=== PATIENT | male | born 1990 | race Two or more races ===

== ENCOUNTER 2020-08-20 09:54 | Emergency (ER) | payer SELFPAY ==
[~2020-08-20] VITALS: Ht 175.3 cm; Wt 99.8 kg
[~2020-08-20 09:54] MED LIST: CYCLOBENZAPRINE10 MG ORAL; IBUPROFEN600 MG ORAL
[2020-08-20 10:10] VITALS: BP 125/79
--- NOTE | 2020-08-20 10:10 | NUR ---
ED Nurse Note: Pt walked in from home. States he syncopal episode x2 days ago at his home witnessed by his friend. He said that he still feels light headed and nauseous today. Pt reprts n/v before syncopal episode. Pt is breathing non labored, vital signs stable, AxOx4, no signs of distress, no complaints of pain. Can use all four extremities independently and walks with a steady gait.
--- NOTE | 2020-08-20 10:36 | Emergency Room Report ---
History of Present Illness General Chief Complaint: Syncope Source: Patient Present Illness HPI Disclaimer: Please note that this report is being documented using DRAGON technology. This can lead to erroneous entry secondary to incorrect interpretation by the dictating instrument. HPI: 30-year-old otherwise healthy male presents for evaluation of syncope 2 days ago. The patient states he was rising from a seated position take off his jacket because he was feeling warm felt sudden nausea and had 1 episode of emesis. Shortly after vomiting he had a brief syncopal episode lasting several seconds. He was awoken by friends. No seizure activity was reported. No further syncope since. He feels somewhat fatigued but denies any chest pain, palpitations, lightheadedness, headache, neck or back pain. No injury sustained in the fall. He denies change in his vision, balance, coordination or strength or sensation. No family history of sudden cardiac or arrhythmias according to patient. Occasionally will use drugs but no recent alcohol or drug use is reported. 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 EOMI. Cardiovascular: RRR. S1 and S2 normal. No murmur appreciated Resp: Normal work of breathing. No cough, wheezing or crackles appreciated Abdomen: Abdomen is soft, nondistended. Nontender Skin: Intact. No abrasions, laceration or rash over the exposed skin MSK: Normal tone and bulk. Moving all extremities. No obvious deformity. Neuro: Awake and alert. Mentating appropriately. Medical Decision Making ER Course 30-year-old male presents for evaluation after syncopal event 2 days ago. Differential includes was not limited to orthostatic hypotension, vasovagal syncope, dehydration, electrolyte abnormality, arrhythmia among others. Patient is well-appearing arrives with stable vital signs and syncopal event occurred 2 days ago. His EKG is nonischemic. Labs were obtained and have returned within normal limits. Patient received IV fluids. He is feeling well and simply wanted to be checked out. I believe he is low risk for major adverse cardiac event and stable for outpatient follow-up. Encouraged to drink plenty of fluids to avoid dehydration. He understands and agrees with this treatment plan and will return to the emergency department new or worsening him symptoms. Laboratory Tests Test 08/20/20 10:20 White Blood Count 9.4 K/UL (4.8-10.8) Red Blood Count 5.85 M/UL (4.70-6.10) Hemoglobin 18.3 G/DL (14.2-18.0) *H Hematocrit 55.2 % (42.0-52.0) H Mean Corpuscular Volume 94 FL (80-99) Mean Corpuscular Hemoglobin 31.3 PG (27.0-31.0) H Mean Corpuscular Hemoglobin Concent 33.2 G/DL (32.0-36.0) Red Cell Distribution Width 11.5 % (11.6-14.8) L Platelet Count 342 K/UL (150-450) Mean Platelet Volume 6.7 FL (6.5-10.1) Neutrophils (%) (Auto) 72.2 % (45.0-75.0) Lymphocytes (%) (Auto) 20.2 % (20.0-45.0) Monocytes (%) (Auto) 5.3 % (1.0-10.0) Eosinophils (%) (Auto) 1.1 % (0.0-3.0) Basophils (%) (Auto) 1.2 % (0.0-2.0) Sodium Level 136 MMOL/L (136-145) Potassium Level 3.8 MMOL/L (3.5-5.1) Chloride Level 101 MMOL/L (98-107) Carbon Dioxide Level 28 MMOL/L (21-32) Anion Gap 7 mmol/L (5-15) Blood Urea Nitrogen 14 mg/dL (7-18) Creatinine 1.2 MG/DL (0.55-1.30) Estimated Glomerular Filtration Rate > 60 mL/min (>60) Glucose Level 89 MG/DL (74-106) Calcium Level 9.5 MG/DL (8.5-10.1) Total Bilirubin 0.5 MG/DL (0.2-1.0) Aspartate Amino Transferase (AST) 21 U/L (15-37) Alanine Aminotransferase (ALT) 36 U/L (12-78) Alkaline Phosphatase 88 U/L (46-116) Troponin I 0.000 ng/mL (0.000-0.056) Total Protein 9.0 G/DL (6.4-8.2) H Albumin 4.6 G/DL (3.4-5.0) Globulin 4.4 g/dL Albumin/Globulin Ratio 1.0 (1.0-2.7) Lipase 230 U/L (73-393) EKG Diagnostic Results Troponin ordered: Yes When was troponin ordered?: Aug 20, 2020 EKG Time: 10:07 Rate: normal Rhythm: NSR ST Segments: no acute changes Other Impression Sinus rhythm, normal axis, normal intervals, QTC 423 ms, no ST segment changes ASA given to the pt in ED: Yes Rhythm Strip Diag. Results Rhythm Strip Time: 10:07 EP Interpretation: yes Rate: 60s Rhythm: NSR, no PVC's, no ectopy Chest X-Ray Diagnostic Results Chest X-Ray Diagnostic Results : Chest X-Ray Ordered: Yes # of Views/Limited/Complete: 1 View Indication: Other - Syncope EP Interpretation: Yes Interpretation: no consolidation, no effusion, no pneumothorax, no acute cardiopulmonary disease Impression: No acute disease Electronically Signed by: Electronically signed by Dr. Brandon Green MD Last Vital Signs Date Time Temp Pulse Resp B/P (MAP) Pulse Ox O2 Delivery O2 Flow Rate FiO2 08/20/20 10:00 98.4 77 16 125/79 (94) 96 Room Air Disposition: HOME, SELF-CARE Condition: Stable Brandon Green MD Aug 20, 2020 10:36
[2020-08-20 10:41] LABS: ANION GAP 7 mmol/L (5-15); BLOOD UREA NITROGEN 14 mg/dL (7-18); CALCIUM 9.5 MG/DL (8.5-10.1); CARBON DIOXIDE 28 MMOL/L (21-32); CHLORIDE 101 MMOL/L (98-107); CREATININE 1.2 MG/DL (0.55-1.30); POTASSIUM 3.8 MMOL/L (3.5-5.1); SODIUM 136 MMOL/L (136-145)
[2020-08-20 10:45] LABS: BASOPHILS % (AUTO) 1.2 % (0.0-2.0); EOSINOPHILS % (AUTO) 1.1 % (0.0-3.0); HEMATOCRIT 55.2 % (42.0-52.0); LYMPHOCYTES % (AUTO) 20.2 % (20.0-45.0); MEAN CORPUSCULAR VOLUME 94 FL (80-99); MONOCYTES % (AUTO) 5.3 % (1.0-10.0); NEUTROPHILS % (AUTO) 72.2 % (45.0-75.0); PLATELET COUNT 342 K/UL (150-450); RED BLOOD COUNT 5.85 M/UL (4.70-6.10); RED CELL DISTRIBUTION WIDTH 11.5 % (11.6-14.8); WHITE BLOOD COUNT 9.4 K/UL (4.8-10.8)
[2020-08-20 10:46] LABS: ALANINE AMINOTRANSFERASE 36 U/L (12-78); ALBUMIN 4.6 G/DL (3.4-5.0); ALKALINE PHOSPHATASE 88 U/L (46-116); ASPARTATE AMINO TRANSFERASE 21 U/L (15-37); BILIRUBIN,TOTAL 0.5 MG/DL (0.2-1.0)
[2020-08-20 10:50] LABS: HEMOGLOBIN 18.3 G/DL (14.2-18.0)
[2020-08-20 11:15] VITALS: BP 133/77
--- NOTE | 2020-08-20 11:15 | NUR ---
ER DISCHARGE NOTE: Patient is cleared to be discharged per ERMD, pt is aox4, on room air, with stable vital signs. pt was given dc and prescription instructions, pt was able to verbalize understanding, pt id band and Iv site removed without complications. pt is able to ambulate with steady gait. pt took all belongings.
--- NOTE | 2020-08-20 12:53 | Diagnostic Imaging Report ---
Indication: Syncope Technique: One view of the chest Comparison: none Findings: Lungs and pleural spaces are clear. Heart size is normal. Impression: No acute process
== END 2020-08-20 11:15 | disposition home or self-care (01) ==
LOC: EMR 10:53
DX: R55 Syncope and collapse (principal)
CPT/HCPCS: 36415; 71045; 80053; 83690; 84484; 85025; 93005; 99283